=== PATIENT | female | born 1965 ===

== ENCOUNTER 2017-12-10 05:44 | Day surgery (SDC) | payer MEDICAID ==
[2017-12-05 10:47] VITALS: BMI 29.5
[2017-12-10] MEDS ORDERED: ceFAZolin 1 gm FROZEN Premix 2 GM/100 ML ML IVPB ONE (07:43)
[2017-12-10] MEDS ORDERED: Midazolam 2 MG/2 ML VIAL ONE (08:03)
[2017-12-10] MEDS ORDERED: Propofol 10 mg/ml Inj (20 ML) ONE (08:03)
--- NOTE | 2017-12-10 10:54 | PCM.SURG1 ---
Surgeon's Initial Post Op Note - Surgeon's Notes Surgeon: Dr. Youngblood Senior Formulation Scientist: Dr. Alegria PGY-4, Bianca Roman OMS-III Type of Anesthesia: General LMA Pre-Operative Diagnosis: Bilateral varicose veins Operative Findings: see operative report Post-Operative Diagnosis: Bilateral varicose veins Operation Performed: Vein stripping and ligation Right leg & Phelbectomy Left leg Specimen/Specimens Removed: saphenous vein Estimated Blood Loss: EBL {In ML}: 40 Blood Products Given: N/A Drains Used: No Drains Post-Op Condition: Good Date of Surgery/Procedure: 12/10/17 Time of Surgery/Procedure: 08:00
[2017-12-10] MEDS ORDERED: HYDROmorphone 0.5 mg/0.5 ml ISec IVP PRN (10:59)
[2017-12-10 11:44] VITALS: RESP 16
[2017-12-10] MEDS ORDERED: Lactated Ringer's 1,000 ML IV ONE (12:30)
[2017-12-10 14:22] VITALS: BP 126/69; PULSE 74; TEMP 97.6; O2SAT 98
--- NOTE | 2017-12-10 22:40 | OP ---
Copied To: Izaiah Youngblood Jr., MD Attending MD: Izaiah Youngblood Jr., MD PROCEDURE DATE: 12/10/2017 PREOPERATIVE DIAGNOSIS: Varicose veins, left worse than right. PROCEDURES CARRIED OUT: Stripping and ligation of varicose veins, left leg greater saphenous vein and ligation of multiple tributaries, right leg ligation of multiple tributaries. SURGEON: Izaiah Youngblood Jr., MD ENVIRONMENTAL SAFETY SPECIALIST: Disha Alegria DO ANESTHESIOLOGIST: INDICATIONS: The patient is a middle-aged woman with varicose veins, worse on the left leg than the right. DESCRIPTION OF PROCEDURE: Preoperatively, these were marked on the skin prior to the patient receiving any sedation. We then dissected out. After prepping and draping and the patient given antibiotics and usual maneuvers in a proper position, we dissected out the saphenous vein in the groin. Then, we attempted to dissect out the saphenous vein from the below. We had difficulty locating it both of the ankle and at the calf despite the use of the ultrasound. Nonetheless after this had been done, we then did a retrograde stripping from above down. We were able to remove a good segment of the saphenous vein. We then removed multiple tributaries, which were marked on the skin on both legs, and then the procedure was terminated. Blood loss for the procedure was less than 100 mL. OPERATIONS CARRIED OUT: Stripping and ligation of greater saphenous vein left leg, ligation of multiple tributaries and ligation of multiple tributaries of right leg. Izaiah Youngblood Jr., MD cc: Kaylee Morataya MD
== END 2017-12-10 14:15 | disposition home or self-care (01) ==
LOC: C.SDS 05:44
PROVIDERS: ATTEND Surgery Vascular Surgery
DX: I83.893 Varicose veins of bilateral lower extremities with other complications (principal)
CPT/HCPCS: 37722; 37785; 88304; C1769; C1894; J0690; J1100; J1170; J2001; J2250; J2405; J2704; J3010; J7120